=== PATIENT | female | born 1985 | race Caucasian/White ===

== ENCOUNTER 2017-08-12 20:46 | Emergency (ER) | payer BC ==
[2017-08-12 20:55] VITALS: BP 159/109; PULSE 92; RESP 20; TEMP 98.2; O2SAT 100
[2017-08-12] MEDS ORDERED: Sodium Chloride 0.9% 1,000 ML IV STA ×2 (21:10→22:17)
[2017-08-12 21:38] LABS: BASO # 0.1 K/uL (0.0-0.2); BASO % 0.9 % (0.0-2.0); EOS % 0.4 % (0.0-4.0); HEMATOCRIT 33.8 % (34.0-47.0); LYMPH # 1.4 K/uL (1.0-4.3); MEAN CELL VOLUME 83.9 fl (81.0-99.0); MEAN CORPUSCULAR HEMOGLOBIN 27.1 pg (27.0-31.0); MEAN CORPUSCULAR HGB CONC 32.3 g/dL (33.0-37.0); MEAN PLATELET VOLUME 9.7 fl (7.2-11.7); MONO # 0.6 K/uL (0.0-0.8); MONO % 5.5 % (0.0-10.0); NEUT # 8.5 K/uL (1.8-7.0); NEUT % 80.2 % (50.0-75.0); RED CELL DISTRIBUTION WIDTH 14.7 % (11.5-14.5); WHITE BLOOD COUNT 10.5 K/uL (4.8-10.8)
[2017-08-12 21:46] LABS: PARTIAL THROMBOPLASTIN TIME 28.1 Seconds (25.6-37.1)
[2017-08-12 21:53] LABS: ALB/GLOB RATIO 1.4 (1.0-2.1); ALKALINE PHOSPHATASE 63 U/L (38-126); ALT/SGPT 23 U/L (9-52); AST/SGOT 36 U/L (14-36); BILIRUBIN,TOTAL 0.5 mg/dl (0.2-1.3); BLOOD UREA NITROGEN 9 mg/dl (7-17); CALCIUM 9.7 mg/dL (8.4-10.2); CARBON DIOXIDE 21 mmol/L (22-30); CHLORIDE 104 mmol/L (98-107); GFR AFRICAN-AMERICAN > 60; GLUCOSE,RANDOM 120 mg/dL (65-105); SODIUM 140 mmol/l (132-148); TOTAL PROTEIN 7.4 G/DL (6.3-8.2)
[2017-08-12 21:58] LABS: POTASSIUM 3.1 MMOL/L (3.6-5.0)
--- NOTE | 2017-08-12 22:11 | ED PDOC ---
HPI: Abdomen Time Seen by Provider: 08/12/17 21:00 Chief Complaint (Nursing): GI Problem Chief Complaint (Provider): Abdominal pain History Per: Patient History/Exam Limitations: no limitations Onset/Duration Of Symptoms: Days (x1) Current Symptoms Are (Timing): Still Present Additional Complaint(s): Tatiana Scales is a 32 year old female who presents to the emergency department with a complaint of sharp, constant lower abdominal pain associated with heavy menstrual flow, nausea and loss of appetite ongoing for 1 day. Denied vomiting, cough, diarrhea and shortness of breath. Patient stated she took Midol earlier today with no alleviation of symptoms. PMD: none provided Past Medical History Reviewed: Historical Data, Nursing Documentation, Vital Signs Vital Signs: Last Vital Signs Temp 98.2 F 08/12/17 20:52 Pulse 92 H 08/12/17 20:52 Resp 20 08/12/17 20:52 BP 159/109 H 08/12/17 20:52 Pulse Ox 100 08/12/17 22:24 - Medical History PMH: No Chronic Diseases - Surgical History Surgical History: No Surg Hx - Family History Family History: States: Unknown Family Hx - Social History Current smoker - smoking cessation education provided: No Ex-Smoker (has not smoked in the last 12 months): No Alcohol: Social Drugs: Denies - Home Medications Home Medications: Ambulatory Orders Medication Instructions Recorded Naproxen [Naprosyn] 500 mg PO Q12 #14 tab 08/13/17 - Allergies Allergies/Adverse Reactions: Allergies Allergy/AdvReac Type Severity Reaction Status Date / Time No Known Allergies Allergy Verified 08/12/17 20:51 Review of Systems ROS Statement: Except As Marked, All Systems Reviewed And Found Negative Respiratory: Negative for: Cough, Shortness of Breath Gastrointestinal: Positive for: Nausea, Abdominal Pain (lower), Other (loss of appetite). Negative for: Vomiting, Diarrhea Physical Exam - Reviewed Nursing Documentation Reviewed: Yes Vital Signs Reviewed: Yes - Physical Exam Appears: Positive for: Well, Non-toxic, Uncomfortable Head Exam: Positive for: ATRAUMATIC, NORMAL INSPECTION, NORMOCEPHALIC Skin: Positive for: Normal Color Respiratory: Positive for: Normal Breath Sounds. Negative for: Decreased Breath Sounds, Respiratory Distress Gastrointestinal/Abdominal: Positive for: Bowel Sounds, Soft, Tenderness (RLQ; positive McBurney's point). Negative for: Normal Exam Neurologic/Psych: Positive for: Alert, Oriented - Laboratory Results Result Diagrams: 08/12/17 21:31 08/12/17 21:31 - ECG O2 Sat by Pulse Oximetry: 100 (RA) Pulse Ox Interpretation: Normal Medical Decision Making Medical Decision Making: Initial Impression: RLQ pain Initial Plan: * ABO/RH * Type and screen * CT ABD/pelvis with IV contrast * CMP * HCG * Urine dipstick * Urine * PTT * PT * Morphine 4mg IVP * NS 1,000ml IV per 1,000mls/hr * Zofran 4mg IV * US transvag 22:52 CT FINDINGS: Lower thorax: <No significant pleural effusions.> ABDOMEN: Liver: Unremarkable. No mass. Gallbladder and bile ducts: Cholelithiasis. No ductal dilation. Pancreas: Unremarkable. No ductal dilation. Spleen: Unremarkable. No splenomegaly. Adrenals: Unremarkable. No mass. Kidneys and ureters: Mild bilateral hydronephrosis. Stomach and bowel: Unremarkable. No dilated bowel loops. Appendix: No findings to suggest acute appendicitis. PELVIS: Bladder: Unremarkable. Reproductive: Enlarged heterogeneous uterus areas of low density. Correlate with pelvic ultrasound. ABDOMEN and PELVIS: Intraperitoneal space: Small amount of free fluid in the pelvis. No free air. Bones/joints: No acute fracture. No dislocation. Soft tissues: Unremarkable. Vasculature: Unremarkable. No abdominal aortic aneurysm. Lymph nodes: Unremarkable. No enlarged lymph nodes. IMPRESSION: 1. Cholelithiasis. 2. Enlarged heterogeneous uterus areas of low density. Correlate with pelvic ultrasound. 3. Small amount of free fluid in the pelvis. 4. Mild bilateral hydronephrosis. 5.No findings to suggest acute appendicitis. US Pelvis FINDINGS: Uterus/cervix: A large fibroid is identified within the mid fundus measuring 8.3 cm in greatest dimension. The Normal endometrial stripe thickness, measuring 5 mm Right ovary: Despite prolonged interrogation, the right ovary was nonvisualized. Left ovary: Despite prolonged interrogation, the left ovary was nonvisualized. Free fluid: No free fluid. IMPRESSION: Large fundal fibroid. Despite prolonged interrogation, neither ovary was visualized. US Transvaginal FINDINGS: Uterus/cervix: Heterogeneous in echogenicity and increased in size measuring 10.5 x 8.1 x 9.9 cm. Within the mid fundus is a well-circumscribed focus of mixed echogenicity measuring 8.5 cm in greatest dimension, sonographically a fibroid. Normal endometrial stripe thickness, measuring 9 mm. Right ovary: Unremarkable in echogenicity and size measuring 2.4 x 1.9 x 2.4 cm. No mass. Normal blood flow. Left ovary: Unremarkable in echogenicity and size measuring 3.4 x 2.3 x 2.8 cm. No mass. Normal blood flow. Free fluid: No free fluid. IMPRESSION: Fibroid uterus. 00:25 Labs were reviewed, no clinically significant abnormalities. Patient reports improvement in symptoms. Provider explained results to the patient at length. At the bedside were the patient's spouse and parents. Father is a physician. Patient verbalized understanding. Was evaluated in [facility] in May, will return for follow up. Diagnosis: Fibroid Uterus, condition improved Scribe Attestation: Documented by Greer Porter, acting as a scribe for Gregg Allan MD. Provider Scribe Attestation: All medical record entries made by the Scribe were at my direction and personally dictated by me. I have reviewed the chart and agree that the record accurately reflects my personal performance of the history, physical exam, medical decision making, and the department course for this patient. I have also personally directed, reviewed, and agree with the discharge instructions and disposition. Disposition - Clinical Impression Clinical Impression: Fibroid, Abdominal pain - Patient ED Disposition Is Patient to be Admitted: No - Disposition Referrals: Rasheed Diaz DO [Staff Provider] - Disposition: Routine/Home Disposition Time: 00:25 Condition: IMPROVED Prescriptions: Naproxen [Naprosyn] 500 mg PO Q12 #14 tab Instructions: Uterine Fibroids (ED) Forms: [employer] (Albanian)
[2017-08-12] MEDS ORDERED: Iohexol 300 100 ML IJ ONE (22:15)
[2017-08-12] MEDS ORDERED: Sodium Chloride 0.9% 50 ML IV ONE (22:16)
--- NOTE | 2017-08-12 23:13 | US ---
EXAM: US Pelvis Complete, Transabdominal US Pelvis, Transvaginal CLINICAL HISTORY: 32 years old, female; Pain; Pelvic pain; Additional info: Possible right ov cyst/torsion TECHNIQUE: Real-time transabdominal and transvaginal pelvic ultrasound (complete) with image documentation. Transvaginal imaging was used for better evaluation of the endometrium and adnexa. COMPARISON: No relevant prior studies available. FINDINGS: Uterus/cervix: A large fibroid is identified within the mid fundus measuring 8.3 cm in greatest dimension. The Normal endometrial stripe thickness, measuring 5 mm Right ovary: Despite prolonged interrogation, the right ovary was nonvisualized. Left ovary: Despite prolonged interrogation, the left ovary was nonvisualized. Free fluid: No free fluid. IMPRESSION: Large fundal fibroid. Despite prolonged interrogation, neither ovary was visualized.
--- NOTE | 2017-08-12 23:59 | US ---
EXAM: US Pelvis, Transvaginal CLINICAL HISTORY: 32 years old, female; Pain; Pelvic pain; Additional info: Rlq pain TECHNIQUE: Real-time transvaginal pelvic ultrasound (complete) with image documentation. Transvaginal imaging was used for better evaluation of the endometrium and adnexa. COMPARISON: CT - ABD PELVIS IV CONTRA 08/12/2017 10:26:36 PM FINDINGS: Uterus/cervix: Heterogeneous in echogenicity and increased in size measuring 10.5 x 8.1 x 9.9 cm. Within the mid fundus is a well-circumscribed focus of mixed echogenicity measuring 8.5 cm in greatest dimension, sonographically a fibroid. Normal endometrial stripe thickness, measuring 9 mm. Right ovary: Unremarkable in echogenicity and size measuring 2.4 x 1.9 x 2.4 cm. No mass. Normal blood flow. Left ovary: Unremarkable in echogenicity and size measuring 3.4 x 2.3 x 2.8 cm. No mass. Normal blood flow. Free fluid: No free fluid. IMPRESSION: Fibroid uterus.
--- NOTE | 2017-08-13 10:44 | CT ---
PROCEDURE: CT abdomen and pelvis dated 08/13/2017. HISTORY: RLQ pain COMPARISON: Correlation made with concurrent pelvic ultrasound. TECHNIQUE: Contiguous axial images of the abdomen and pelvis performed following the intravenous injection of approximately 95 cc of Omnipaque 300 contrast material. . Coronal and Sagittal reformats generated. Radiation dose: Total exam DLP = 885.68 mGy-cm. This CT exam was performed using one or more of the following dose reduction techniques: Automated exposure control, adjustment of the mA and/or kV according to patient size, and/or use of iterative reconstruction technique. FINDINGS: LOWER THORAX: Unremarkable. LIVER: Liver exhibits normal size. Mild diffuse fatty hepatic infiltration. No obvious hepatic mass or collection. Portal and splenic veins are opacified. . GALLBLADDER AND BILE DUCTS: Multiple intraluminal tiny cholesterol gallstones are present. PANCREAS: Unremarkable without mass collection or calcification no significant pancreatic ductal dilatation. SPLEEN: Unremarkable. No splenomegaly. ADRENALS: There are no adrenal lesions. KIDNEYS AND URETERS: Kidneys demonstrate symmetric nephrograms. . There is mild prominence of the renal pelves aneurysm possibly due to the aforementioned large uterine fibroid BLADDER: Urinary bladder is physiologically distended. No evidence of intraluminal urinary bladder calculi. REPRODUCTIVE: Markedly enlarged heterogeneous uterus consistent with uterine fibroid. There is also small amount of free fluid seen in the cul de sac. APPENDIX: Normal-appearing retrocecal appendix best seen on axial image number [id number]. BOWEL: Evaluation of the bowel is limited due to the lack of oral contrast material. The stomach is incompletely distended. Visualized loops of small bowel exhibit normal contour and caliber. No evidence acute mechanical small bowel obstruction. Stool and air seen throughout the large bowel. No of abnormal mural wall thickening. PERITONEUM: No gross free intraperitoneal air. Small amount of free fluid in the cul de sac as mentioned above. LYMPH NODES: Unremarkable. No enlarged lymph nodes. Teodoro VASCULATURE: Unremarkable. No aortic aneurysm. BONES: No fracture or destructive lesion. OTHER FINDINGS: None. IMPRESSION: Is present there is a large uterine fibroid with small amount of free fluid in the pelvis. Mildly prominent of renal pelves and ureters possibly due to the aforementioned large fibroid. Cholelithiasis. No evidence of acute appendicitis. Preliminary report provided by overnight radiology service.
== END 2017-08-13 00:40 | disposition home or self-care (01) ==
LOC: H.ER 20:46
DX: D25.9 Leiomyoma of uterus, unspecified (principal); Z87.891 Personal history of nicotine dependence
CPT/HCPCS: 74177; 76830; 76856; 80053; 84703; 85025; 85610; 85730; 86850; 86900; 96361; 96374; 96375; 99282; J2270; J2405; J7040; Q9967